=== PATIENT | male | born 1940 | race Caucasian/White ===

== ENCOUNTER 2021-03-13 08:21 | Day surgery (SDC) | payer MEDICARE ==
[~2021-03-13] VITALS: Ht 190.5 cm; Wt 75.1 kg
--- NOTE | 2021-03-13 09:11 | NUR ---
03/13/21 0911 Jayesh Turpin HISTORY,CHART, MEDICATIONS AND ALLERGIES REVIEWED BEFORE START OF PROCEDURE. PATIENT CONFIRMS NPO STATUS AND AGREES WITH SCHEDULED PROCEDURE. 3-LEAD EKG REVIEWED WITH PHYSICIAN PRIOR TO START OF PROCEDURE. MONITOR INTACT WITH CONTINUOUS PULSE OXIMETRY AND INTERMITTENT BP. SUPPLEMENTAL O2 TO BE TITRATED THROUGHOUT PROCEDURE TO MAINTAIN O2 SATURATION ABOVE 90%. PATIENT DETERMINED TO BE ASA APPROPRIATE FOR MODERATE SEDATION PRIOR TO START OF PROCEDURE BY DR. CURTIS. HURRICAINE SPRAY TO OROPHARYX.. Bite Block Placed, WILL REMOVE AFTER PROCEDURE.
--- NOTE | 2021-03-13 09:53 | NUR ---
PT STILL GROGGY AT THIS TIME, AROUSABLE BY VOICE COMMANDS
--- NOTE | 2021-03-13 10:04 | NUR ---
PT TOLERATING PO FLUIDS
--- NOTE | 2021-03-13 10:13 | NUR ---
Discharge instructions reviewed with patient. Patient verbalizes understanding. Copy given to patient to take home.
--- NOTE | 2021-03-13 10:29 | NUR ---
PT DRESSED, READY FOR DISCHARGE, BEGAN FEELING NAUSEATED, VOMITED SMALL AMOUNT. NOTIFIED DR CURTIS, GAVE ORDERS TO PUT IV BACK IN AND ADMINISTER IV ZOFRAN
--- NOTE | 2021-03-13 10:55 | NUR ---
PT STATES NAUSEA HAS SUBSIDED AND IS READY TO GO HOME. Discharged via wheelchair to private car for ride home.
== END 2021-03-13 10:56 | disposition home or self-care (01) ==
LOC: ORSCMMR 08:21 → ORD 09:30 → ORSCMMR 10:56
PROVIDERS: Internal Medicine Gastroenterology
PROC: 0DB78ZX Excision of Stomach, Pylorus, Via Natural or Artificial Opening Endoscopic, Diagnostic (ICD-10-PCS; principal; 2021-03-13 09:30)
PROC: 0DB58ZX Excision of Esophagus, Via Natural or Artificial Opening Endoscopic, Diagnostic (ICD-10-PCS; principal; 2021-03-13 09:30)
PROC: 0D758ZZ Dilation of Esophagus, Via Natural or Artificial Opening Endoscopic (ICD-10-PCS; principal; 2021-03-13 09:30)
PROC: 0DB48ZX Excision of Esophagogastric Junction, Via Natural or Artificial Opening Endoscopic, Diagnostic (ICD-10-PCS; principal; 2021-03-13 09:30)
DX: R13.14 Dysphagia, pharyngoesophageal phase (principal); K29.70 Gastritis, unspecified, without bleeding; B37.81 Candidal esophagitis; K22.2 Esophageal obstruction; G47.33 Obstructive sleep apnea (adult) (pediatric)
CPT/HCPCS: 88305; 88312; 88342; A9270; C1726; J2250; J2405; J3010; J7120

== ENCOUNTER 2021-07-26 07:31 | Day surgery (SDC) | payer MEDICARE ==
[~2021-07-26] VITALS: Ht 193 cm; Wt 75.4 kg
[~2021-07-26 07:31] MED LIST: Aspir 8181 MG; LAMO100 PO; LIPITOR80 MG PO; MULVITA; OLAN20; Prinivil10 MG PO; VITAMIN B
--- NOTE | 2021-07-26 08:55 | NUR ---
07/26/21 0855 Javi Rosa HISTORY,CHART, MEDICATIONS AND ALLERGIES REVIEWED BEFORE START OF PROCEDURE. PATIENT CONFIRMS NPO STATUS AND AGREES WITH SCHEDULED PROCEDURE. 3-LEAD EKG REVIEWED WITH PHYSICIAN PRIOR TO START OF PROCEDURE. MONITOR INTACT WITH CONTINUOUS PULSE OXIMETRY AND INTERMITTENT BP. SUPPLEMENTAL O2 TO BE TITRATED THROUGHOUT PROCEDURE TO MAINTAIN O2 SATURATION ABOVE 90%. PATIENT DETERMINED TO BE ASA APPROPRIATE FOR MODERATE SEDATION PRIOR TO START OF PROCEDURE BY
--- NOTE | 2021-07-26 10:29 | NUR ---
Discharge instructions reviewed with patient. Patient verbalizes understanding. Copy given to patient to take home. Patient up to Ambulate independently. Gait steady. Discharged via wheelchair to private car for ride home.
== END 2021-07-26 23:24 | disposition home or self-care (01) ==
LOC: ORSCMMR 07:31 → ORD 08:30 → ORSCMMR 23:24
PROVIDERS: Internal Medicine Gastroenterology
PROC: 0D758ZZ Dilation of Esophagus, Via Natural or Artificial Opening Endoscopic (ICD-10-PCS; principal; 2021-07-26 08:30)
PROC: 0DB58ZX Excision of Esophagus, Via Natural or Artificial Opening Endoscopic, Diagnostic (ICD-10-PCS; principal; 2021-07-26 08:30)
DX: R13.14 Dysphagia, pharyngoesophageal phase (principal); B37.9 Candidiasis, unspecified; Z86.16 Personal history of COVID-19; G47.30 Sleep apnea, unspecified
CPT/HCPCS: 88305; 88312; C1726; J2250; J3010; J7120

== ENCOUNTER 2021-09-21 21:57 | Emergency (ER) | payer MEDICARE ==
[~2021-09-21] VITALS: Ht 193 cm; Wt 74.8 kg
[2021-09-22] MEDS ORDERED: Percocet 5-3251 EACH PO (00:42)
[2021-09-22] MEDS ORDERED: ONDA4ODT MM (00:42)
[2021-09-22] MEDS ORDERED: AMOCLA875 PO (00:42)
[2021-09-23] MEDS ORDERED: METO10 PO (05:28)
[2021-09-23] MEDS ORDERED: PROM12.5S PR (05:28)
== END 2021-09-22 01:24 | disposition home or self-care (01) ==
LOC: ER 21:57
DX: S02.40FA Zygomatic fracture, left side, initial encounter for closed fracture (principal); S02.40DA Maxillary fracture, left side, initial encounter for closed fracture; W22.8XXA Striking against or struck by other objects, initial encounter; Y92.9 Unspecified place or not applicable
CPT/HCPCS: 70450; 96374; 99283-25; A9270

== ENCOUNTER 2021-09-22 22:26 | Emergency (ER) | payer MEDICARE ==
[~2021-09-22] VITALS: Ht 193 cm; Wt 74.8 kg
[~2021-09-22 22:26] MED LIST changes: +AMOCLA875 PO; +ONDA4ODT MM; +Percocet 5-3251 EACH PO
[2021-09-22 23:44] LABS: BASOPHILS ABSOLUTE AUTO 0.03 K/mm3 (0.00-0.23); BASOPHILS PERCENT AUTO 0 % (0-2); EOSINOPHILS ABSOLUTE AUTO 0.03 K/mm3 (0.00-0.68); EOSINOPHILS PERCENT AUTO 0 % (0-6); Hematocrit 39.2 % (37.0-53.0); Hemoglobin 13.5 g/dL (13.5-17.5); IMMATURE GRAN ABSOLUTE AUTO 0.03 K/mm3 (0.00-0.10); IMMATURE GRAN PERCENT AUTO 0 % (0-1); LYMPHOCYTES ABSOLUTE AUTO 0.42 K/mm3 (0.84-5.20); LYMPHOCYTES PERCENT AUTO 4 % (21-46); MONOCYTES PERCENT AUTO 9 % (4-13); Mean Corpuscular HGB 30.6 pg (26.0-34.0); Mean Corpuscular HGB Conc 34.4 g/dL (31.5-36.5); Mean Corpuscular Volume 89 fL (80-100); Mean Platelet Volume 10.8 fL (9.1-12.4); NEUTROPHILS ABSOLUTE AUTO 9.09 K/mm3 (1.96-9.15); NEUTROPHILS PERCENT AUTO 87 % (41-73); Platelet Count 276 K/mm3 (150-400); RDW Coefficient Variation 12.6 % (11.7-14.2); RDW Standard Deviation 41.1 fL (35.1-46.3); Red Blood Cell Count 4.41 M/mm3 (4.30-5.90)
[2021-09-23 00:05] LABS: Albumin, Blood 3.7 g/dL (3.4-5.0); Albumin/Globulin Ratio 0.9 (0.8-1.8); Bilirubin, Total 0.7 mg/dL (0.1-1.0); Bun/Creatinine Ratio 25.7 (12.0-20.0); Calcium, Blood 9.4 mg/dL (8.5-10.1); Creatinine, Blood 0.82 mg/dL (0.60-1.20); Globulin, Blood 4.1 g/dL (2.2-4.0); Magnesium, Blood 2.7 mg/dL (1.6-2.4); Potassium, Blood 4.1 mmol/L (3.5-5.5); Total Protein, Blood 7.8 g/dL (6.4-8.2)
[2021-09-23] MEDS ORDERED: PROM12.5S PR (05:28)
[2021-09-23] MEDS ORDERED: METO10 PO (05:28)
== END 2021-09-23 05:47 | disposition home or self-care (01) ==
LOC: ER 22:26
PROVIDERS: Physician Assistant
DX: R11.2 Nausea with vomiting, unspecified (principal); S02.40DA Maxillary fracture, left side, initial encounter for closed fracture; S02.85XA Fracture of orbit, unspecified, initial encounter for closed fracture; W19.XXXA Unspecified fall, initial encounter; Z79.899 Other long term (current) drug therapy
CPT/HCPCS: 80053; 83690; 83735; 85025; J1790; J2270; J2550; J7030

== ENCOUNTER 2024-11-24 08:10 | Day surgery (SDC) | payer OTHER ==
[~2024-11-24] VITALS: Ht 190.5 cm; Wt 75.0 kg
[~2024-11-24 08:10] MED LIST changes: +METO10 PO; +PROM12.5S PR
[2024-11-24 09:00] VITALS: BP 126/65
[2024-11-24] MEDS ORDERED: Ondansetron HCl 2 MG / ML 2ML Vial IV ONE (09:15)
--- NOTE | 2024-11-24 09:26 | NUR ---
History, Chart, Medications and Allergies reviewed before start of procedure. Lungs clear T/O to Auscultation. Patient confirms NPO status and agrees with scheduled surgery. Pre-Op teaching done. Pt verbalizes understanding. Patient States Post-Procedure ride home has been arranged.
[2024-11-24] MEDS ORDERED: Benzocaine Oral Spray 0.5ML UD ONE (09:31)
--- NOTE | 2024-11-24 09:39 | NUR ---
11/24/24 0939 Becca Johnson CONFIRMED AND REVIEWED H&P, MEDCICATIONS, ALLERGIES, MEDICAL HISTORY, RESPIRATORY HISTORY, VITAL SIGNS, 3-LEAD EKG, CONSENTS, AND PHYSICIAN ORDERS. PATIENT CONFIRMS NPO STATUS AND AGREES WITH SCHEDULED PROCEDURE. MONITOR INTACT WITH CONTINUOUS PULSE OXIMETRY, CAPNOGRAPHY, 3-LEAD EKG, INTERMITTENT BP. SUPPLEMENTAL O2 TO BE TITRATED THROUGHOUT PROCEDURE TO MAINTAIN O2 SATURATION ABOVE 90%. PATIENT DETERMINED TO BE ASA APPROPRIATE FOR PROPOFOL SEDATION PRIOR TO START OF PROCEDURE BY DR. CURTIS. MALLAMPATI CLASS 2 AIRWAY: COMPLETE VISUALIZATION OF THE UVULA. Patient reports loose tooth upper front on right.
--- NOTE | 2024-11-24 10:18 | NUR ---
PT PROCEDURE CANCELED BY DR CURTIS PRIOR TO SCOPE PASSING DUE TO DENTAL ISSUE MAKING PROCEDING UNSAFE. PT DCD HOME IV DCD INTACT, PT TO CONTACT OFFICE AFTER DENTAL ISSUE FIXED. PT DISAPPOINTED BUT AGREED TO CALL OFFICE AND STATED THAT HE ALREADY HAD A DENTIST APPT SCHEDULE FOR
== END 2024-11-24 23:00 | disposition home or self-care (01) ==
LOC: ORSCMMR 08:10 → ORD 09:00 → ORSCMMR 09:00
PROC: 0DJ08ZZ Inspection of Upper Intestinal Tract, Via Natural or Artificial Opening Endoscopic (ICD-10-PCS; principal; 2024-11-24)
DX: R13.14 Dysphagia, pharyngoesophageal phase (principal); Z53.09 Procedure and treatment not carried out because of other contraindication; G47.33 Obstructive sleep apnea (adult) (pediatric); Z85.46 Personal history of malignant neoplasm of prostate
CPT/HCPCS: A9270; J2405; J2704; J7120